=== PATIENT | female | born 1985 | race Caucasian/White ===

== ENCOUNTER 2018-08-04 13:29 | Emergency (ER) | payer OTHER ==
[~2018-08-04] VITALS: Ht 157.5 cm; Wt 64.6 kg
[2018-08-04 13:35] VITALS: BP 162/97; PULSE 88; RESP 16; Ht 157.5 cm; Wt 64.6 kg
[2018-08-04] MEDS ORDERED: CEPH-443 PO (13:57)
--- NOTE | 2018-08-04 14:02 | ERD ---
ER Documentation Chief Complaint Chief Complaint Pt reports bug bite to back of R thigh HPI Patient is a patient is a 33-year-old female who presents with an area of redness and swelling to her right posterior thigh that she is had for about 3 days. She states it was much smaller yesterday but noticed today the redness is spread and it is painful warm and the skin in that area feels hard. She thinks she may have been bit by an insect but is not sure. No fevers. ROS All systems reviewed and are negative except as per history of present illness. Medications Home Meds Active Scripts Cephalexin* (Keflex*) 500 Mg Capsule, 500 MG PO QID for 7 Days, CAP Prov:ARMIN BEE PA-C 08/04/18 Allergies Allergies: Coded Allergies: iodine (Verified Allergy, Intermediate, SWELLING, 10/27/13) Uncoded Allergies: CONTRAST (Allergy, Intermediate, SWELLING, 10/27/13) PMhx/Soc Hx Alcohol Use: No Hx Substance Use: No Hx Tobacco Use: No Physical Exam Vitals Vital Signs Date Temp Pulse Resp B/P (MAP) Pulse Ox O2 O2 Flow FiO2 Time Delivery Rate 08/04/18 98.7 88 16 162/97 100 13:35 (118) Physical Exam Const: No acute distress Head: Atraumatic Eyes: Normal Conjunctiva ENT: Normal External Ears, Nose and Mouth. Neck: Full range of motion. No meningismus. Resp: Clear to auscultation bilaterally Cardio: Regular rate and rhythm, no murmurs Skin: Right posterior thigh has an area of erythema and indurated skin approximately 4 to 5 cm in diameter, no fluctuance Procedures/MDM Patient has an area of allergic reaction versus cellulitis on her right thigh likely secondary to insect bite. Prescription for Keflex given. No abscess formation. Patient counseled regarding my diagnostic impression and care plan. Prior to discharge all questions answered. Pt agrees with treatment plan and understands strict return precautions. Pt is instructed to follow up with primary care provider within 24-48 hours. Precautionary instructions provided including instructions to return to the ER if not improving or for any worsening or changing symptoms or concerns. Departure Diagnosis: Primary Impression: Cellulitis Condition: Stable Patient Instructions: Cellulitis Additional Instructions: Call your primary care doctor TOMORROW for an appointment during the next 1-2 days.See the doctor sooner or return here if your condition worsens before your appointment time. ARMIN BEE PA-C Aug 04, 2018 14:02
== END 2018-08-04 14:13 | disposition home or self-care (01) ==
LOC: FTE 13:29
DX: L03.115 Cellulitis of right lower limb (principal)
CPT/HCPCS: 99283